=== PATIENT | female | born 1995 | race Caucasian/White ===

== ENCOUNTER 2019-01-28 09:00 | Emergency (ER) | payer SELFPAY ==
[~2019-01-28] VITALS: Ht 167.6 cm; Wt 68.0 kg
[2019-01-28] MEDS ORDERED: LEVETIRACETAM 500MG TABLET PO ONE (09:45)
[2019-01-28] MEDS ORDERED: ACETAMINOPHEN 325MG TABLET PO ONE (09:45)
[2019-01-28] MEDS ORDERED: METOCLOPRAMIDE HCL 10MG/2ML VIAL IM ONE (09:45)
[2019-01-28] MEDS ORDERED: IBUPROFEN 400MG TABLET PO ONE (09:45)
[2019-01-28 10:55] VITALS: BP 115/72
== END 2019-01-28 10:56 | disposition home or self-care (01) ==
LOC: ER 09:00
DX: G40.909 Epilepsy, unspecified, not intractable, without status epilepticus (principal)
CPT/HCPCS: 81025; 96372; 99284; J2765

== ENCOUNTER 2021-05-29 08:34 | Emergency (ER) | payer MEDICAID ==
[~2021-05-29] VITALS: Ht 167.6 cm; Wt 63.0 kg
[2021-05-29] MEDS ORDERED: LEVETIRACETAM 500MG PREMIX 100 ML IV ONE (09:15)
[2021-05-29 10:00] LABS: BASOPHILS % 0.4 % (0.0-2.0); EOSINOPHILS % 1.1 % (0.0-5.0); HEMATOCRIT. 32.2 % (36.0-48.0); HEMOGLOBIN. 10.8 g/dL (12.0-16.0); LYMPHOCYTES % 14.4 % (20.0-50.0); MEAN CORPUSCULAR HEMOGLOBIN 27.6 pg (28.0-32.0); MEAN CORPUSCULAR VOLUME 82.5 fL (81.0-99.0); MEAN PLATELET VOLUME 8.9 fl (7.4-10.4); MONOCYTES % 5.7 % (2.0-8.0); NEUTROPHILS % 78.4 % (40.0-76.0); PLATELET 210 x1000/uL (130-400); RED BLOOD CELL COUNT 3.91 mill/uL (4.2-5.4); RED CELL DISTRIBUTION WIDTH 16.6 % (11.6-14.6)
[2021-05-29 10:06] LABS: CHLORIDE 106 mEq/L (98-107)
[2021-05-29 10:13] LABS: HCG SCREEN NEGATIVE
[2021-05-29] MEDS ORDERED: ACETAMINOPHEN 325MG TABLET PO ONE (12:30)
[2021-05-29 13:40] VITALS: BP 132/62
== END 2021-05-29 14:55 | disposition home or self-care (01) ==
LOC: ER 08:34
DX: R56.9 Unspecified convulsions (principal); Z98.890 Other specified postprocedural states
CPT/HCPCS: 36415; 70450; 80048; 84703; 85025; 93005; 96365; 99285; J1953

== ENCOUNTER 2021-06-26 00:44 | Emergency (ER) | payer MEDICAID ==
[~2021-06-26] VITALS: Ht 162.6 cm; Wt 64.0 kg
[2021-06-26] MEDS ORDERED: LEVETIRACETAM 1000MG PREMIX 100 ML IV ONE (01:15)
[2021-06-26] MEDS ORDERED: HYDROCODONE/ACETAMINOPHEN 5/325MG TABLET PO ONE (02:00)
[2021-06-26] MEDS ORDERED: ONDANSETRON HCL 4MG/2ML INJ IV ONE ×2 (02:15→03:30)
[2021-06-26] MEDS ORDERED: LORAZEPAM 2MG/ML CPJ IV ONE (05:00)
[2021-06-26 07:10] VITALS: BP 115/72
== END 2021-06-26 07:11 | disposition home or self-care (01) ==
LOC: ER 00:44
DX: R56.9 Unspecified convulsions (principal); Z98.890 Other specified postprocedural states
CPT/HCPCS: 82962; 96365; 96375; 99285; J1953; J2060; J2405